=== PATIENT | female | born 1945 | race Caucasian/White ===

== ENCOUNTER 2021-02-19 07:49 | Day surgery (SDC) | payer MEDICARE ==
[2021-02-19] MEDS ORDERED: Midazolam 1 MG/ML 2 ML SDV ONE (08:07)
[2021-02-19] MEDS ORDERED: Propofol 200 MG/20 ML SDV ONE ×2 (08:07→10:10)
[2021-02-19] MEDS ORDERED: fentaNYL 100 MCG/2 ML SDV ONE (08:07)
[2021-02-19] MEDS ORDERED: Dextrose 5%-Lactated Ringers 1,000 ML IV SCH (08:30)
[2021-02-19 12:12] VITALS: PULSE 66
[2021-02-19 12:13] VITALS: BP 115/66
--- NOTE | 2021-02-28 15:15 | OR ---
DATE OF PROCEDURE: 02/19/2021 SURGEON: Black Britt MD PREOPERATIVE DIAGNOSIS: History of a single episode of rectal bleeding. POSTOPERATIVE DIAGNOSES: 1. Upper endoscopy showing a small hiatal hernia with patchy esophagitis. 2. Colonoscopy showing partial obstruction of ileocolic anastomosis of uncertain nature. OPERATIVE PROCEDURES: 1. Esophagogastroduodenoscopy with: a. Biopsy of esophagogastric junction for histologic evaluation. b. Biopsies of antrum for CLOtest. 2. Flexible colonoscopy with biopsy of fleshy tissue within colorectal anastomosis. ANESTHESIA: IV sedation. INDICATIONS FOR PROCEDURE: This is a 75-year-old referred with a single episode of rectal bleeding. 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 The plan is to proceed with upper and lower endoscopy with biopsies and/or dilation as indicated. Potential risks including bleeding and perforation were discussed, and the patient wishes to proceed. DETAILS OF PROCEDURE: The patient was taken to the operating room, placed in a left lateral decubitus position. IV sedation was administered, after which the upper GI endoscope was passed orally through the length of the esophagus into the stomach with retroflexion view of the fundus, and thereafter through the pyloric channel and into the proximal duodenum. Findings included some patchy esophagitis associated with a very small hiatal hernia. There was no ulceration located within these areas and no stricturing or plaquing or other signs of neoplasia. The remainder of the gastric and proximal duodenal exams were unremarkable. Biopsies were then obtained from the antrum to assess the patient's H pylori status. Multiple biopsies were obtained from esophagogastric junction for histologic evaluation. Minimal bleeding from biopsy sites was seen and the procedure then concluded. Attention was then taken to the colonoscopy. Digital rectal exam was performed and was unremarkable. Colonoscope was passed into the rectum with retroflexion revealing some excoriated hemorrhoids. The latter may have been the source of the episodic rectal bleeding, but no old blood or bleeding was seen today. The scope was then eventually passed to the ileocolic anastomosis. At that level, there was quite a bit of fleshy mucosa present within the anastomotic site, partially obscuring visualization of the area proximal to it. This was not grossly neoplastic, but could simply be inflammatory related, perhaps ongoing bile related inflammation to the mucosa at that level. Multiple biopsies from that fleshy material were obtained and minimal bleeding from biopsy sites was seen and procedure was then concluded. Scope was withdrawn, the above findings were reconfirmed, and the procedure concluded. The patient was taken to the recovery room in satisfactory condition. 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 Black Britt MD /[id number]
== END 2021-02-19 13:00 | disposition home or self-care (01) ==
LOC: JP.SDS 07:49
PROVIDERS: ATTEND Surgery
DX: K52.9 Noninfective gastroenteritis and colitis, unspecified (principal); K22.10 Ulcer of esophagus without bleeding; K44.9 Diaphragmatic hernia without obstruction or gangrene; K56.699 Other intestinal obstruction unspecified as to partial versus complete obstruction; K64.9 Unspecified hemorrhoids; Z87.891 Personal history of nicotine dependence
CPT/HCPCS: 43239; 45380; 87081; 88305; 88312; J1642; J2250; J2704; J3010; J7121

== ENCOUNTER 2022-02-02 07:04 | Day surgery (SDC) | payer MEDICARE ==
[2022-02-02] MEDS ORDERED: Dextrose 5%-Lactated Ringers 1,000 ML IV SCH (07:45)
[2022-02-02] MEDS ORDERED: Propofol 200 MG/20 ML SDV ONE (08:03)
[2022-02-02] MEDS ORDERED: fentaNYL 100 MCG/2 ML SDV ONE (08:03)
[2022-02-02 10:13] VITALS: BP 94/66; PULSE 88
== END 2022-02-02 10:13 | disposition home or self-care (01) ==
LOC: JP.SDS 07:04
PROVIDERS: ATTEND Surgery
DX: Z12.11 Encounter for screening for malignant neoplasm of colon (principal); K64.9 Unspecified hemorrhoids; K21.9 Gastro-esophageal reflux disease without esophagitis; Z88.8 Allergy status to other drugs, medicaments and biological substances; Z86.010 Personal history of colon polyps; Z90.49 Acquired absence of other specified parts of digestive tract
CPT/HCPCS: G0105; J2704; J3010; J7121

== ENCOUNTER 2022-06-22 20:04 | Emergency (ER) | payer MEDICARE ==
[2022-06-22 22:03] VITALS: BP 132/87; PULSE 91
[2022-06-22] MEDS ORDERED: Amoxicillin/Clavulanate K 875-125 MG Tab PO ONE (22:53)
== END 2022-06-22 23:23 | disposition home or self-care (01) ==
LOC: JP.ED 20:04
DX: R59.0 Localized enlarged lymph nodes (principal)
CPT/HCPCS: 36415; 85025; 86140; 86308; 99283; A9270-GY; J1642

== ENCOUNTER 2024-05-16 12:14 | Emergency (ER) | payer MEDICARE ==
[2024-05-16] MEDS ORDERED: Sodium Chloride 0.9% 10 ML Syringe FLUSH PRN (13:46)
[2024-05-16 14:09] LABS: BASOPHILS ABSOLUTE AUTO 0.02 K/uL (0.00-0.10); BASOPHILS PERCENT AUTO 0.3 % (0.1-1.3); EOSINOPHILS ABSOLUTE AUTO 0.06 K/uL (0.00-0.40); HEMATOCRIT 35.2 % (34.3-46.0); HEMOGLOBIN 12.9 g/dL (11.2-15.5); IMMATURE GRAN ABSOLUTE AUTO 0.04 K/uL (0.00-0.23); IMMATURE GRAN PERCENT AUTO 0.7 % (0.0-0.7); LYMPHOCYTES PERCENT AUTO 14.9 % (11.4-47.7); MEAN CORPUSCULAR HEMOGLOBIN 32.3 pg (31.6-35.5); MEAN CORPUSCULAR HGB CONC 36.6 g/dL (31.6-35.5); MONOCYTES ABSOLUTE AUTO 0.34 K/uL (0.20-0.90); MONOCYTES PERCENT AUTO 5.6 % (3.3-12.6); NEUTROPHILS ABSOLUTE AUTO 4.67 K/uL (1.0-7.6); NEUTROPHILS PERCENT AUTO 77.5 % (40.0-78.1); PLATELET COUNT,PLT 147 K/uL (130-375)
[2024-05-16 14:30] LABS: ANION GAP 7.1 mmol/L (5.0-14.0); BLOOD UREA NITROGEN,BUN 15 mg/dL (7-18); CALCIUM 9.6 mg/dL (8.5-10.1); CARBON DIOXIDE,CO2 29 mmol/L (21-32); CHLORIDE,CL 106 mmol/L (100-108); EST CRCL DRUG DOSING (CG) 40.38 mL/min; ESTIMATED GFR 57 mL/min (>60); GLUCOSE RANDOM 116 mg/dL (74-106); SODIUM,NA 142 mmol/L (140-148)
[2024-05-16 14:35] LABS: TROPONIN I HIGH SENSITIVITY < 4.0 pg/mL (<=60.3)
[2024-05-16] MEDS: Sodium Chloride 0.9% 1,000 ML IV ONE (14:38)
[2024-05-16] MEDS: Ondansetron 4 MG/2 ML SDV IVPUSH ONE (14:38)
[2024-05-16 16:24] VITALS: BP 126/71; PULSE 73
== END 2024-05-16 16:21 | disposition home or self-care (01) ==
LOC: JP.ED 12:14
DX: R55 Syncope and collapse (principal); Z90.49 Acquired absence of other specified parts of digestive tract
CPT/HCPCS: 36415; 70450; 80048; 83735; 84484; 85025; 93005; 96361; 96374; 99284; J1642; J2405; J7030

== ENCOUNTER 2024-11-09 13:01 | Emergency (ER) | payer MEDICARE ==
[2024-11-09 13:22] VITALS: BP 177/93; PULSE 97
[2024-11-09 13:57] LABS: APPEARANCE,URINE CLEAR (CLEAR); BILIRUBIN,URINE NEGATIVE (NEGATIVE); COLOR,URINE YELLOW (YELLOW); GLUCOSE,URINE NEGATIVE (NEGATIVE); KETONES,URINE NEGATIVE (NEGATIVE); LEUKOCYTE ESTERASE,URINE SMALL (NEGATIVE); NITRITE,URINE NEGATIVE (NEGATIVE); OCCULT BLOOD,URINE MODERATE (NEGATIVE); PH,URINE 5.5 (5.0-8.0); PROTEIN,URINE NEGATIVE (NEGATIVE); UROBILINOGEN,URINE 0.2 EU/dL (0.2-1.0)
[2024-11-09] MEDS: Ketorolac 30 MG/ML SDV IM ONE (14:14)
[2024-11-09 14:15] LABS: BASOPHILS PERCENT AUTO 0.3 % (0.1-1.3); EOSINOPHILS PERCENT AUTO 1.4 % (0.0-5.4); HEMATOCRIT 35.4 % (34.3-46.0); IMMATURE GRAN ABSOLUTE AUTO 0.03 K/uL (0.00-0.23); IMMATURE GRAN PERCENT AUTO 0.4 % (0.0-0.7); LYMPHOCYTES ABSOLUTE AUTO 1.64 K/uL (0.8-3.3); LYMPHOCYTES PERCENT AUTO 23.2 % (11.4-47.7); MEAN CORPUSCULAR HEMOGLOBIN 32.5 pg (31.6-35.5); MEAN CORPUSCULAR HGB CONC 36.7 g/dL (31.6-35.5); MEAN CORPUSCULAR VOLUME 88.5 fL (81.4-99.0); MONOCYTES ABSOLUTE AUTO 0.35 K/uL (0.20-0.90); NEUTROPHILS ABSOLUTE AUTO 4.92 K/uL (1.0-7.6); NEUTROPHILS PERCENT AUTO 69.7 % (40.0-78.1); PLATELET COUNT,PLT 145 K/uL (130-375); WHITE BLOOD CELL COUNT,WBC 7.1 K/uL (3.2-11.0)
[2024-11-09 14:16] LABS: AMORPHOUS SEDIMENT,URINE NOT SEEN; BACTERIA,URINE MODERATE; EPITHELIAL CELLS,URINE FEW; MUCUS,URINE FEW; RBC,URINE 0-5 (0-5)
[2024-11-09 14:20] LABS: BASOPHILS ABSOLUTE AUTO 0.02 K/uL (0.00-0.10)
[2024-11-09 14:31] LABS: CALCIUM 9.6 mg/dL (8.5-10.1); CREATININE 1.3 mg/dL (0.6-1.0); EST CRCL DRUG DOSING (CG) 30.54 mL/min; POTASSIUM,K 3.9 mmol/L (3.6-5.2)
[2024-11-09 14:32] LABS: ANION GAP 13.9 mmol/L (5.0-14.0)
== END 2024-11-09 15:39 | disposition home or self-care (01) ==
LOC: JP.ED 13:01
DX: N13.2 Hydronephrosis with renal and ureteral calculous obstruction (principal); Z79.899 Other long term (current) drug therapy; Z87.891 Personal history of nicotine dependence
CPT/HCPCS: 36415; 74176; 80048; 81001; 83605; 85025; 87086; 96372; 99283; 99284; J1885